=== PATIENT | female | born 1960 | race Asian ===

== ENCOUNTER 2023-07-30 16:45 | Emergency (ER) | payer SELFPAY ==
[2023-07-30 16:48] VITALS: BP 139/70
[2023-07-30 17:28] LABS: ALT (SGPT) 20 U/L (0-35); AST (SGOT) 23 U/L (14-36); Albumin 4.2 g/dl (3.5-5.0); Alkaline Phosphatase 75 U/L (38-126); Blood Urea Nitrogen 16 mg/dl (7-17); Calcium 9.2 mg/dl (8.4-10.2); Carbon Dioxide 23 mmol/L (22-30); Chloride 108 mmol/L (98-107); Glucose 155 mg/dl (70-99); Potassium 4.5 mmol/L (3.5-5.1); Sodium 138 mmol/L (135-145); Total Bilirubin 0.5 mg/dl (0.2-1.3); Total Protein 6.9 g/dl (6.3-8.2); eGFR > 60.00
[2023-07-30 17:39] LABS: Troponin I 0.015 ng/ml
[2023-07-30 18:06] VITALS: BP 128/71
--- NOTE | 2023-07-30 18:53 | ED.GENMED ---
History of Present Illness
General
Chief Complaint: Chest Pain
Source: patient and other (Friend/neighbor)
Exam Limitations: none
Time Seen by Provider: 07/30/23 17:59
Nursing documentation reviewed up to this point in time: agreed with
Travel History
Have you had any contact with someone who has COVID-19?: No
Do you have any symptoms of coronavirus? Fever > 100 degrees, chills, cough, shortness of breath, sore throat, loss of taste or smell, muscle aches, or headache?: No
History of Present Illness
History of Present Illness:
62-year-old female with a past medical history of hypertension who presents to the emergency room for evaluation of chest pain. Patient reports that has been intermittent for the past month or so but more severe over the past 4 days. She reports a
'pinching' pain in the left chest. Radiates towards her left axillary region. No clear triggering or relieving factors noted although she does note that it seems to be somewhat worse in the evenings and when she first wakes up in the morning. She
denies any injury or trauma. She denies any associated shortness of breath. She denies any cough. She has not had any fever or chills. No swelling or pain in her legs. No abdominal pain, nausea, vomiting. She denies similar history in the past.
Review of Systems
Review of Systems
All Other Systems: ROS reviewed and negative except as documented in HPI and ROS
Constitutional: Denies fever or chills
EENT: Denies sore throat or runny nose
Respiratory: Denies cough or trouble breathing
Cardiac: Reports chest pain; Denies diaphoresis, palpitations or syncope
ABD/GI: Denies abdominal pain, nausea, vomiting or diarrhea
: Denies dysuria, frequency or flank pain
Musculoskeletal: Denies edema, neck pain or back pain
Neurological: Denies dizzy or headache
Phy Exam
Physical Exam
Physical Exam:
General: Awake, alert; no acute distress
Head: Normocephalic, atraumatic
Eyes: Conjunctiva normal, sclera anicteric
Throat: Airway intact, handling secretions
Neck: Trachea midline, supple without meningismus
Lungs: Clear to auscultation bilaterally, no wheezing, rales, rhonchi
Heart: Regular rate and rhythm, no murmurs, gallops, or rubs; she has mild tenderness in the left parasternal region; she has no breast masses or erythema of the breast
Abd: Soft, non distended, nontender
Neuro: Cranial nerves grossly intact, speech fluid
Skin: no rash
Extremities: No edema in extremities, warm and well-perfused
Scores
Heart Failure Risk
Heart Failure Risk Score: Not Applicable
Heart Score for Chest Pain Patients
STEMI patient?: No
History: Slightly or Non-Suspicious
ECG: Normal
Age: >45 - <65 years
Risk Factors: 1 or 2 Risk Factors
Troponin: </= Normal Limit
Heart Score for Chest Pain Patients: 2
Heart Score Risk: 2.5% MACE over next 6 weeks
PE Wells Score
Symptoms of DVT: No
No alternative diagnosis better explains the illness: No
Tachycardia with pulse > 100: No
Immobilization (>=3 days) or surgery within previous 4 weeks: No
Prior history of DVT or pulmonary embolism: No
Presence of hemoptysis: No
Presence of malignancy: No
Pulmonary Embolism Risk Score: 0
Probability of PE: Pt is low risk
Withdrawal Assessment of Alcohol
Withdrawal Assessment Completed?: Not applicable
Course
Orders/Labs/Results
Orders:
Orders
07/30/23 16:54
Electrocardiogram (*1) Urgent
Reason for Study: Chest Pain
EKG- Treatment ONCE
07/30/23 17:03
CMP [Comprehensive Metabolic Panel] Urgent
Troponin I Urgent
07/30/23 18:28
Complete Blood Count/With Diff Urgent
D-Dimer Urgent
PTT Urgent
Prothrombin Time Urgent
07/30/23 18:51
Ketorolac [Toradol] 15 mg IV NOW STA
CR Chest - 2 Views Urgent
Comment:
Reason For Exam: left sided CP
07/30/23 19:24
Troponin I Urgent
Abnormal Lab Results
07/30/23 07/30/23
17:03 18:28
RBC 3.82 L 10^6/uL
(4.20-5.40)
Hgb 11.5 L g/dL
(12.0-16.0)
Hct 32.4 L %
(37.0-47.0)
MPV 10.5 H fL
(7.4-10.4)
APTT 21.4 L Sec
(23.4-35.0)
Chloride 108 H mmol/L
(98-107)
Glucose 155 H mg/dl
(70-99)
07/30/23 18:28
07/30/23 17:03
Vital Signs
Initial and Last Documented VS:
Initial Vital Signs
Temp Pulse Resp BP Pulse Ox
36.7 C 69 19 139/70 97
07/30/23 16:48 07/30/23 16:48 07/30/23 16:48 07/30/23 16:48 07/30/23 16:48
Last Documented Vital Signs
Temp Pulse Resp BP Pulse Ox
36.7 C 66 19 117/78 97
07/30/23 16:48 07/30/23 20:15 07/30/23 19:46 07/30/23 20:00 07/30/23 16:48
MDM/Problems Addressed
Differential Diagnosis Includes:
ACS/acute NH, PE, costochondritis, pneumothorax, pneumonia, GERD
MDM/Problems Addressed:
62-year-old female presents for evaluation of intermittent chest pains over the past month somewhat worse over the past 4 days. Located in the left chest radiates towards the axillary region. Vital signs here within normal limits. Physical exam
as above. EKG shows no acute ischemia. Plan to place an IV check labs including CBC and CMP, serial troponins. Will check a D-dimer. Check a chest x-ray. Toradol for pain. Monitor closely reassess after the above.
Labs reviewed: CBC shows marginal anemia but otherwise unremarkable, CMP no clinically significant abnormalities. Troponin negative x 2. D-dimer negative. Awaiting results of chest x-ray. Patient remains well appearing with reassuring vital
signs.
Chest x-ray reviewed by me shows no pneumothorax or pneumonia or other acute pathology. Patient remains well-appearing, reassuring vitals, workup for emergent pathology is thus far been negative. She does have some reproducible tenderness on exam
could be costochondritis. Nevertheless she does have hypertension and with new onset intermittent chest pains I think she should be seen by cardiology. With HEART score 2, I think safe for discharge to follow up with cardiology as an
outpatient--will provide referral via our chest pain hotline. Patient feels comfortable with this plan. Spoke about return precautions all questions answered.
Chronic conditions affecting care:
History of hypertension�higher risk for CAD
Chronic conditions affecting care: HTN
*Radiology
Radiology exam reviewed: preliminary read by ED provider and radiology read reviewed
*Pulse Oximetry
Patient hypoxic: no
*EKG
Interpreted by ED Provider?: Yes
Comparison EKG: no comparison EKG present
Heart Rate: 70
Rate: normal
Rhythm: sinus
[place]: normal axis
Interval: normal interval
QRS Pattern: normal QRS
Ischemia: no ischemia
*Critical Care Note
Total Time (30-74mins, 75-104mins- exclusive of procedures): Not Applicable
Data Reviewed
Source: patient and other (Friend)
ED Attending Note
-
Portions of this chart may have been created with voice recognition software.� Occasional wrong word or��sound alike� substitutions may have occurred due to the inherent limitations of voice recognition software.
Discharge Plan
Departure
Patient with high blood pressure during this ER visit?: No
Discharge Problem:
Chest pain
Instructions: Chest Pain [facility] Follow Up
Referrals:
Jerry Mitchell, DO [Active] - Call in 1-3 days for appt
Activity Restrictions/Additional Instructions:
Thank you for visiting the Emergency Department at [facility].
1. Please schedule a follow up appointment as directed. Call first thing tomorrow morning to make an appointment.
2. If indicated, please take your medications as instructed and indicated on discharge paperwork.
3. If any of your symptoms do not improve, or persist, or become more severe within 6-12 hours, please return to the emergency department for further care.
4. Please return to the emergency department if you develop a headache, neck pain/stiffness, fever greater than 100.4F, chest pain, shortness of breath, persistent nausea, vomiting, slurred speech, difficulty walking, numbness/tingling, weakness,
signs of infection or any other symptoms that are worrisome to you.
Please call [phone] if you have any questions.
Interventions
Interventions:
*Risk Screen - Suicide Last Done: 07/30/23 18:28
*General Assessment Last Done: 07/30/23 18:28
*Neglect/Abuse Screening Last Done: 07/30/23 18:28
ED- Fall Risk Assessment Last Done: 07/30/23 19:42
ED- Cardiac Assessment Last Done: 07/30/23 19:42
[2023-07-30 19:02] LABS: % Basophils 0.5 % (0-2); % Eosinophils 0.5 % (0-6); % Immature Granulocytes 0.3 % (0-0.5); % Lymphocytes 29.7 % (20.5-51.1); % Monocytes 8.4 % (1.7-9.3); % Neutrophils 60.6 % (42.2-75.2); Absolute Monocytes 0.6 10^3/uL (0.1-0.6); Hematocrit 32.4 % (37.0-47.0); Hemoglobin 11.5 g/dL (12.0-16.0); Mean Corp Hgb Conc. 35.5 g/dL (33.0-37.0); Mean Corpuscular Hgb 30.1 pg (27.0-31.0); Mean Corpuscular Volume 84.8 fL (81.0-99.0); Mean Platelet Volume 10.5 fL (7.4-10.4); Nucleated Red Blood Cells % 0 %; Platelet Count 370 10^3/uL (130-400); Red Blood Cell Count 3.82 10^6/uL (4.20-5.40); Red Cell Dist. Width 12.4 % (11.5-14.5); White Blood Cell Count 6.6 10^3/uL (4.8-10.8)
[2023-07-30 19:46] VITALS: BP 139/94
[2023-07-30 19:46] LABS: INR 0.96; PT 12.9 Sec (11.4-14.6)
[2023-07-30 19:47] LABS: APTT 21.4 Sec (23.4-35.0)
[2023-07-30 19:56] LABS: Troponin I < 0.012 ng/ml
[2023-07-30 20:00] VITALS: BP 117/78
[2023-07-30] MEDS: TORADOL 15 MG IV (20:15)
[2023-07-30 21:00] VITALS: BP 122/68
== END 2023-07-30 21:50 | disposition home or self-care (01) ==
LOC: EMR 16:45
PROVIDERS: Emergency Medicine; EMERGENCY PHYSICIAN Emergency Medicine
DX: R07.89 Other chest pain (principal); M79.622 Pain in left upper arm; I10 Essential (primary) hypertension
CPT/HCPCS: 99284; 96374; 71046; 80053; 84484; 85025; 85379; 85610; 85730; 93005